=== PATIENT | female | born 1985 | race Caucasian/White ===

== ENCOUNTER 2018-02-10 08:53 | Emergency (ER) | payer OTHER ==
[2018-02-10] MEDS ORDERED: OXYMETAZOLINE NASAL SPRAY NAS STA (09:11)
[2018-02-10] MEDS ORDERED: MECLIZINE 12.5 MG TABLET PO STA (09:11)
[2018-02-10] MEDS ORDERED: ONDANSETRON ODT 4 MG TABLET TL STA (09:11)
--- NOTE | 2018-02-10 09:14 | ED Physician Documentation ---
History of Present Illness - Stated complaint Stated Complaint: Vertigo - Chief complaint Chief Complaint: General - Additonal information Additional information: hx from pt 32 f hx migraines and crohns and seasonal allergies denies preg LMP now and SO has a vas yesterday and today with severe vertigo, diff to walk, spinning also recent nasal and ear congestion c/w allergies has a REED similar to her migraines has been worked up for her migraine including imaging and has meds for same ( but PCSing so meds are not with her right now) Review of Systems Constitutional: denies: Fever, Chills Nose: reports: Congestion GI: reports: Nausea : reports: LMP (now). denies: Now EGA Neurologic: reports: Headache (like migraines), Other (vertigo). denies: Focal weakness, Numbness PD PAST MEDICAL HISTORY - Past Medical History Cardiovascular: Arrhythmia Neuro: Migraines GI: Ulcerative colitis - Past Surgical History Past Surgical History: No General: Colonoscopy, Other - Present Medications Home Medications: Ambulatory Orders Medication Instructions Recorded Confirmed Metoprolol Tartrate 100 mg PO DAILY 04/21/14 10/19/15 Cetirizine [ZyrTEC] 10 mg PO ONCE 02/10/18 02/10/18 Fluticasone [Flonase] 2 sprays DAX DAILY #1 bottle 02/10/18 Meclizine [Antivert] 25 mg PO Q6H PRN #20 tablet 02/10/18 Ondansetron Odt [Zofran] 4 mg TL Q6H PRN #10 tablet 02/10/18 - Allergies Allergies/Adverse Reactions: Allergies Allergy/AdvReac Type Severity Reaction Status Date / Time tramadol HCl * [From Ultra] Allergy Hallucinati Verified 02/10/18 09:00 ons - Social History Does the pt smoke?: No Smoking Status: Never smoker Does the pt drink ETOH?: Yes Does the pt have substance abuse?: No - POLST Patient has POLST: No PD ED PE NORMAL - Vitals Vital signs reviewed: Yes - HEENT HEENT: Atraumatic, EOMI (+ horiz nystagmus with vertigo during EOMI, no palsy, paulina TMs dull and congested) - Neck Neck: Supple, no meningeal sign - Cardiac Cardiac: RRR - Respiratory Respiratory: No respiratory distress - Neuro Neuro: Alert and oriented X 3, pharmaceutical scientist 2-12 intact, No motor deficit, Normal speech Eye Opening: Spontaneous Motor: Obeys Commands Verbal: Oriented GCS Score: 15 Results - Vitals Vitals: Vital Signs - 24 hr 02/10/18 08:57 Temperature 36 C L Heart Rate 71 Respiratory 18 Rate Blood Pressure 121/82 H O2 Saturation 99 Oxygen O2 Source Room air PD MEDICAL DECISION MAKING - ED course ED course: pt better with meds will dc - Sepsis Event Vital Signs: Vital Signs - 24 hr 02/10/18 08:57 Temperature 36 C L Heart Rate 71 Respiratory 18 Rate Blood Pressure 121/82 H O2 Saturation 99 Oxygen O2 Source Room air Departure - Departure Disposition: Home, Self Care Clinical Impression: Vertigo Condition: Good Instructions: ED BPV Vertigo Prescriptions: Fluticasone [Flonase] 2 sprays DAX DAILY #1 bottle Meclizine [Antivert] 25 mg PO Q6H PRN #20 tablet PRN Reason: Dizziness Ondansetron Odt [Zofran] 4 mg TL Q6H PRN #10 tablet PRN Reason: Nausea / Vomiting
[2018-02-10 10:17] VITALS: BP 104/78
== END 2018-02-10 10:19 | disposition home or self-care (01) ==
LOC: ED 08:53
DX: R42 Dizziness and giddiness (principal); R51 Headache; K50.90 Crohn's disease, unspecified, without complications; I49.9 Cardiac arrhythmia, unspecified; Z87.19 Personal history of other diseases of the digestive system
CPT/HCPCS: 99283; A9270; Q0162

== ENCOUNTER 2022-03-02 14:30 | Emergency (ER) | payer OTHER ==
--- NOTE | 2022-03-02 16:27 | ED Physician Documentation ---
PD HPI HEADACHE - Stated complaint Stated Complaint: MIGRAINE - Chief complaint Chief Complaint: Neuro - History obtained from History obtained from: Patient - History of Present Illness Timing - onset: Today, Yesterday Timing - onset during: Light activity Timing - duration: Days (2 days without improvement from Zofran, Ibuprofen, and Imitrex, tried couple of times. States infrequently does the Imitrex help. History of migraines watermaster. Has had neurologist in the past, not currently. Is getting referral from PMD.) Timing - details: Abrupt onset, Still present Worst headache ever?: No: Worst headache ever? (similar to migraines intractable in the past and has had ER visits intermittently for these when intractable over a day.) Location: Front, Right Quality: Throbbing, Aching, Other Associated symptoms: Nausea, Numbness (headache preceded by facial numbness, which is common for her.). No: Fever, Stiff neck, Vomiting, Weakness Improved by: Dark room. No: Meds Worsened by: Light, Noise Contributing factors: No: Anticoagulated, Hypertension, Recent illness, Trauma Similar symptoms before: Diagnosis (long history of migraines as well as chronic daily (most days) headaches. Prior Neurologist several years ago ahd tried few different meds (Topomax sounded familiar to her, as well as several different tryptans). Lamotrigene nor nortryptylline sounded familar but has been years. Getting new referral) Review of Systems Constitutional: denies: Fever, Chills Eyes: reports: Photophobia. denies: Loss of vision, Irritation Nose: denies: Rhinorrhea / runny nose, Congestion Throat: denies: Sore throat Cardiac: reports: Chest pain / pressure. denies: Palpitations Respiratory: denies: Cough GI: reports: Nausea. denies: Abdominal Pain, Vomiting, Diarrhea Skin: denies: Rash, Lesions Neurologic: reports: Headache. denies: Focal weakness, Numbness, Altered mental status, Head injury PD PAST MEDICAL HISTORY - Past Medical History Cardiovascular: Arrhythmia Neuro: Migraines GI: Ulcerative colitis - Past Surgical History Past Surgical History: No General: Colonoscopy, Other - Present Medications Home Medications: Ambulatory Orders Medication Instructions Recorded Confirmed Cetirizine [ZyrTEC] 10 mg PO DAILY 02/10/18 03/02/22 Fluticasone [Flonase] 2 sprays DAX DAILY #1 bottle 02/10/18 03/02/22 Meclizine [Antivert] 25 mg PO Q6H PRN #20 tablet 02/10/18 03/02/22 Ondansetron Odt [Zofran] 4 mg TL Q6H PRN #10 tablet 02/10/18 03/02/22 Indomethacin [Indocin] 25 mg PO BIDWM PRN #10 cap 03/02/22 Ondansetron Odt [Zofran] 4 mg TL Q6H PRN #15 tablet 03/02/22 dexAMETHasone [Decadron] 4 mg PO DAILY #5 tablet 03/02/22 lamoTRIgine [LaMICtal] 25 mg PO QPM #30 tablet 03/02/22 oxyCODONE [Roxicodone] 5 mg PO Q6H PRN #12 tablet 03/02/22 - Allergies Allergies/Adverse Reactions: Allergies Allergy/AdvReac Type Severity Reaction Status Date / Time tramadol HCl * [From Ultram] Allergy Hallucinati Verified 03/02/22 14:39 ons - Social History Does the pt smoke?: No Smoking Status: Never smoker Does the pt drink ETOH?: Yes Does the pt have substance abuse?: No - POLST Patient has POLST: No PD ED PE NORMAL - Vitals Vital signs reviewed: Yes - General General: Alert and oriented X 3, Well developed/nourished, Other (appears uncmofrtable with dark glasses in ER. Light sensitive and noise too. Interacts well and normal conversational ability. ) - HEENT HEENT: PERRL, EOMI - Neck Neck: Supple, no meningeal sign, No adenopathy - Cardiac Cardiac: RRR (mild bradycardia. ), No murmur - Respiratory Respiratory: Clear bilaterally - Derm Derm: Normal color, Warm and dry - Neuro Neuro: Alert and oriented X 3, manager medicare 2-12 intact, No motor deficit, No sensory deficit, Normal speech Eye Opening: Spontaneous Motor: Obeys Commands Verbal: Oriented GCS Score: 15 Results - Vitals Vitals: Vital Signs - 24 hr 03/02/22 03/02/22 14:39 18:20 Temperature 36.7 C 36.5 C Heart Rate 101 H 80 Respiratory 18 16 Rate Blood Pressure 121/84 H 114/65 O2 Saturation 99 97 Oxygen O2 Source Room air PD MEDICAL DECISION MAKING - ED course Complexity details: re-evaluated patient (She is improved with a typical combination of antimigraine medications. She is feeling improved enough to want to go home at this point. She however has only had recently Imitrex and Zofran. Its been several years or more since any prophylactic medications have been tried. We can try daily meds.), considered differential (She has migraine type headache exacerbation yesterday into today unresponsive to home medicines. Symptoms sound consistent with migraine. She also has chronic nearly daily headaches as well.), d/w patient Departure - Departure Disposition: Home, Self Care Clinical Impression: Acute migraine, Chronic daily headache Condition: Stable Record reviewed to determine appropriate education?: Yes Instructions: ED Headache Migraine Follow-Up: BASSEM BRANCH MD [Primary Care Provider] - Prescriptions: dexAMETHasone [Decadron] 4 mg PO DAILY #5 tablet Indomethacin [Indocin] 25 mg PO BIDWM PRN #10 cap PRN Reason: Headache lamoTRIgine [LaMICtal] 25 mg PO QPM #30 tablet oxyCODONE [Roxicodone] 5 mg PO Q6H PRN #12 tablet PRN Reason: Pain Ondansetron Odt [Zofran] 4 mg TL Q6H PRN #15 tablet PRN Reason: Nausea / Vomiting Comments: For the current migraine headache, continue with regular fluids and hydration at home and ondansetron if needed for nausea. Add Tylenol every 4-6 hours if needed for pain and oxycodone if needed for worse pain. Since you have had the migraine persisting for a while, I would also add Decadron steroid daily for 5 more days to try to prevent the recurrence of it in the near term. Subsequently for recurrent migraine type headaches in the near future, you could try a combination of the Zofran/ondansetron nausea medicine along with trying indomethacin twice daily for a day or 2 and see if that is helpful and abbreviated in the migraine. Some types of headaches/migraines are indomethacin responsive and could be helpful info for Neurologist. If you are not noticing much improvement with the initial dose after half an hour to an hour, you could also add the Imitrex that you take. Regarding your chronic frequent headaches, we can also try lamotrigine low-dose daily at night for the next several weeks to a month and see if overall you have lessening of your headaches. Follow-up with your primary care later this month as scheduled and hopefully they will be getting your neurology follow-up/referral in the near future as well. Return to the ER as needed. I transmitted your prescriptions to [facility] pharmacy in [place]. I am prescribing a short course of narcotic pain medication for you. These are potentially dangerous and addictive medications that should be used carefully. These medications may constipate you. Take an [id number]-[id number] stool softener such as docusate twice daily with plenty of water while taking these medications . If you go 24 hours without a bowel movement, take zyog-boy-fqstuil MiraLAX, per package instructions. Do not drink or drive while taking these medications. If you received narcotic or sedating medications while in the emergency department do not drive for 24 hours. Store this medication in a safe, secure place and out of reach of children. It is a violation of federal law to give or sell this medication to another person or to use in a manner other than prescribed. The ED will not refill narcotic prescriptions, including prescriptions lost or stolen. You can dispose of unwanted medications at the [facility] office or at several pharmacies such as [facility] Discharge Date/Time: 03/02/22 18:26
[2022-03-02] MEDS ORDERED: KETOROLAC 15 MG/ML VIAL IVP STA (16:46)
[2022-03-02] MEDS ORDERED: DEXAMETHASONE 10 MG/ML VIAL IVP STA (16:46)
[2022-03-02] MEDS ORDERED: SODIUM CHLORIDE 0.9% 1,000 ML IV STA (16:46)
[2022-03-02] MEDS ORDERED: diphenhydrAMINE INJ 50 MG/ML VIAL IVP STA (16:46)
[2022-03-02] MEDS ORDERED: PROCHLORPERAZINE 10 MG/2 ML VIAL IVP STA (16:46)
[2022-03-02 18:21] VITALS: BP 114/65
== END 2022-03-02 18:26 | disposition home or self-care (01) ==
LOC: ED 14:30
DX: G43.909 Migraine, unspecified, not intractable, without status migrainosus (principal); G89.29 Other chronic pain; G44.89 Other headache syndrome
CPT/HCPCS: 96374; 96375; 99284; 99285; J1200

== ENCOUNTER 2022-07-04 08:53 | Emergency (ER) | payer OTHER ==
--- NOTE | 2022-07-04 09:26 | XRAY Report ---
PROCEDURE: Chest 1 View X-Ray INDICATIONS: Chest pain TECHNIQUE: One view of the chest was acquired. COMPARISON: None. FINDINGS: Surgical changes and devices: None. Lungs and pleura: Right basilar opacity is present. Mediastinum: Mediastinal contours appear normal. Heart size is enlarged. Bones and chest wall: No suspicious bony lesions. Overlying soft tissues appear unremarkable. IMPRESSION: Right basilar opacity suggestive of developing pneumonia. Reviewed by: Frida Metz MD on 07/04/2022 9:24 AM [facility] Approved by: Frida Metz MD on 07/04/2022 9:24 AM [facility] Station ID: [id number]
[2022-07-04 09:38] LABS: BASOPHILS # (AUTO) 0.1 10^3/uL (0.0-0.1); BASOPHILS % (AUTO) 0.8 %; EOSINOPHILS # (AUTO) 0.2 10^3/uL (0.0-0.7); EOSINOPHILS % (AUTO) 1.5 %; HCT - HEMATOCRIT 39.4 % (37.0-47.0); HGB - HEMOGLOBIN 12.8 g/dL (12.0-16.0); LYMPHOCYTES # (AUTO) 1.9 10^3/uL (1.5-3.5); LYMPHOCYTES % (AUTO) 18.6 %; MEAN CORPUSCULAR HEMOGLOBIN 27.7 pg (27.0-31.0); MEAN CORPUSCULAR HGB CONC 32.5 g/dL (32.0-36.0); MEAN CORPUSCULAR VOLUME 85.3 fL (81.0-99.0); MEAN PLATELET VOLUME 9.4 fL (7.9-10.8); MONOCYTES # (AUTO) 0.6 10^3/uL (0.0-1.0); MONOCYTES % (AUTO) 5.9 %; NEUTROPHILS # (AUTO) 7.3 10^3/uL (1.5-6.6); NEUTROPHILS % (AUTO) 73.1 %; PLT - PLATELET COUNT 356 10^3/uL (130-450); RED BLOOD COUNT 4.62 10^6/uL (4.20-5.40); RED CELL DISTRIBUTION WIDTH 13.8 % (12.0-15.0)
[2022-07-04 09:59] LABS: ALBUMIN 3.9 g/dL (3.2-5.5); BILIRUBIN,TOTAL 0.5 mg/dL (0.2-1.0); CALCIUM 9.5 mg/dL (8.5-10.3); CREATININE 0.9 mg/dL (0.4-1.0); POTASSIUM 4.4 mmol/L (3.5-5.0); TOTAL PROTEIN 7.9 g/dL (6.7-8.2)
[2022-07-04] MEDS ORDERED: iohexoL-300 100 ML VIAL ONE ×2 (11:32→12:40)
--- NOTE | 2022-07-04 12:34 | CT Report ---
PROCEDURE: ABDOMEN/PELVIS W INDICATIONS: Rule out pe CONTRAST: 100ml Omnipaque 300 TECHNIQUE: After the administration of intravenous contrast, 5 mm thick sections acquired from the diaphragms to the symphysis. 5 mm thick coronal and sagittal reformats were acquired. For radiation dose reducti on, the following was used: automated exposure control, adjustment of mA and/or kV according to wally ent size. COMPARISON: None. FINDINGS: Image quality: Excellent. ABDOMEN: Lung bases: Lung bases are clear. Heart size is normal. Solid organs: There is a small less than 1 cm indeterminate lesion within the right lobe of the liver posteriorly. If further evaluation is clinically indicated that a right upper quadrant ultrasound ma y be of further clinical value to evaluate cystic versus solid. The spleen appears within normal limi ts. Gallbladder is normal. Biliary system is non dilated. Pancreas enhances normally. No adrenal n odules. Kidneys demonstrate normal size and enhancement, without hydronephrosis. Peritoneum and bowel: Bowel loops demonstrate normal wall thickness and caliber. No free fluid or a ir. The appendix is visualized and appears normal. Nodes and vessels: No retroperitoneal or mesenteric adenopathy by size criteria. Aorta and inferior vena cava are normal in size. Miscellaneous: No ventral hernias. There is some mild scarring versus atelectasis at the lung bases. PELVIS: Genitourinary: Bladder wall thickness is normal. Miscellaneous: No inguinal hernias or adenopathy. Bones: No suspicious bony lesions. No vertebral body compression fractures. IMPRESSION: 1. No acute process identified in the abdomen or pelvis. 2. Normal-appearing appendix. 3. Small less than 1 cm low-attenuation lesion in the right lobe of the patient's liver posteriorly. If further evaluation is clinically indicated a right upper quadrant ultrasound may be of further cli nical value to evaluate cystic versus solid. Reviewed by: Armin Chauhan MD on 07/04/2022 12:33 PM PST Approved by: Armin Chauhan MD on 07/04/2022 12:33 PM PST Station ID: [id number]
[2022-07-04] MEDS ORDERED: ONDANSETRON 4 MG/2 ML VIAL IVP STA (12:51)
[2022-07-04] MEDS ORDERED: fentaNYL 100 MCG/2 ML VIAL IVP STA ×2 (12:53→14:44)
--- NOTE | 2022-07-04 13:39 | CT Report ---
PROCEDURE: ANGIO CHEST W/WO INDICATIONS: Rule out PE CONTRAST: 100ml Omnipaque 300 TECHNIQUE: After the administration of intravenous contrast, 2 mm axial images were acquired from the pulmonary apices to the posterior costophrenic angles during the arterial phase. In addition, 1 mm lung kernel and 5 mm soft tissue kernel reconstructions were performed. 3-dimensional coronal oblique maximum int ensity projection (MIP) reformats, 8 mm axial MIP, and 5 mm coronal and sagittal MPR reformats were t hen performed through the thorax. For radiation dose reduction, the following was used: automated exp osure control, adjustment of mA and/or kV according to patient size. COMPARISON: None FINDINGS: Image quality: Degraded by motion artifact. Pulmonary arteries: Pulmonary arteries are normal in size. There is articular filling defects seen w ithin the right lower lobe, and right upper lobe segmental and subsegmental pulmonary arterial branch es. Lungs and pleura: There is mild patchy opacity within the right upper lobe posteriorly spanning rough ly 30 mm. No pleural effusions or pneumothorax. Central and peripheral airways are patent. Mediastinum: Heart size is normal, without pericardial effusion. No mediastinal or hilar adenopathy . Thoracic aorta is normal in caliber and enhancement. Esophagus is normal in caliber. Small hiatal hernia. Bones and chest wall: No suspicious bony lesions. Ribs and thoracic spine appear intact throughout. No axillary or supraclavicular adenopathy. The thyroid is normal in size and there are no incident al findings. Abdomen: Visualized upper abdominal solid organs appear normal in the early arterial phase of enhanc ement. IMPRESSION: 1. Right-sided pulmonary emboli. 2. Findings suggestive of an early small pulmonary infarction within the right upper lobe. 3. Small hiatal hernia. 4. Findings discussed with Dr. Savage on 07/04/2022 at 1335 hours. Reviewed by: Daniella Garcia MD on 07/04/2022 1:38 PM PST Approved by: Daniella Garcia MD on 07/04/2022 1:38 PM PST Station ID: [id number]
--- NOTE | 2022-07-04 14:28 | Ultrasound Report ---
PROCEDURE: Abdomen Limited INDICATIONS: RUQ abd pain TECHNIQUE: Real-time focused scanning was performed of the abdomen, with image documentation. COMPARISON: 07/04/2022 CT FINDINGS: There is a hyperechoic focus within the right hepatic lobe posteriorly measuring 15 mm kleber meter. Gallbladder is within normal limits. No biliary ductal dilatation. Pancreas is not well seen b ut is grossly unremarkable. Right kidney is grossly unremarkable. IMPRESSION: 1. No acute process. 2. Indeterminate right posterior hepatic lobe lesion, corresponding to a low-density focus by CT. Non emergent outpatient follow-up liver protocol MRI is recommended for further assessment. Reviewed by: Daniella Garcia MD on 07/04/2022 2:26 PM PST Approved by: Daniella Garcia MD on 07/04/2022 2:26 PM PST Station ID: [id number]
--- NOTE | 2022-07-04 14:37 | ED Physician Documentation ---
History of Present Illness - Stated complaint Stated Complaint: CHEST PX - Chief complaint Chief Complaint: Cardiac - Additonal information Additional information: 37-year-old female presenting to the emergency department with right upper cynthia drant abdominal pain as well as right-sided chest pain. Pain began acutely this afternoon. Denies similar episodes of pain in the past. Reports recently initiated an estrogen containing control medication. Denies for any history of hypertension, dyslipidemia, recent travel. Review of Systems Ten Systems: 10 systems reviewed and negative Constitutional: denies: Fever Eyes: denies: Loss of vision Ears: denies: Loss of hearing Nose: denies: Rhinorrhea / runny nose Throat: denies: Dental pain / toothache Cardiac: reports: Chest pain / pressure Respiratory: denies: Dyspnea GI: denies: Abdominal Pain, Nausea, Vomiting : denies: Dysuria PD PAST MEDICAL HISTORY - Past Medical History Past Medical History: Yes Cardiovascular: Arrhythmia Neuro: Migraines GI: Ulcerative colitis - Past Surgical History Past Surgical History: No General: Colonoscopy, Other - Present Medications Home Medications: Ambulatory Orders Medication Instructions Recorded Confirmed Cetirizine [ZyrTEC] 10 mg PO DAILY 18 03/02/22 Fluticasone [Flonase] 2 sprays DAX DAILY #1 bottle 02/10/18 03/02/22 Meclizine [Antivert] 25 mg PO Q6H PRN #20 tablet 02/10/18 03/02/22 Ondansetron Odt [Zofran] 4 mg TL Q6H PRN #10 tablet 02/10/18 03/02/22 Indomethacin [Indocin] 25 mg PO BIDWM PRN #10 cap 03/02/22 Ondansetron Odt [Zofran] 4 mg TL Q6H PRN #15 tablet 03/02/22 dexAMETHasone [Decadron] 4 mg PO DAILY #5 tablet 03/02/22 lamoTRIgine [LaMICtal] 25 mg PO QPM #30 tablet 03/02/22 oxyCODONE [Roxicodone] 5 mg PO Q6H PRN #12 tablet 03/02/22 Apixaban [Eliquis] 5 mg PO BID #90 tablet 07/04/22 HYDROcod/ACETAM 5/325 [[place] 5/325] 1 tab PO Q6HR PRN #15 tablet 07/04/22 ONDANSETRON ODT Prepack 2 [ZOFRAN 4 mg TL Q6H #20 tablet 07/04/22 ODT Prepack 2] - Allergies Allergies/Adverse Reactions: Allergies Allergy/AdvReac Type Severity Reaction Status Date / Time tramadol HCl * [From Ultram] Allergy Hallucinati Verified 07/04/22 09:08 ons - Social History Does the pt smoke?: No Smoking Status: Never smoker Does the pt drink ETOH?: Yes Does the pt have substance abuse?: No - Immunizations Immunizations are current?: Yes - POLST Patient has POLST: No PD ED PE NORMAL - Vitals Vital signs reviewed: Yes - General General: Alert and oriented X 3, No acute distress, Well developed/nourished - HEENT HEENT: Atraumatic, PERRL, EOMI, Ears normal - Neck Neck: Supple, no meningeal sign, No bony TTP, No adenopathy - Cardiac Cardiac: RRR, No gallop, Strong equal pulses - Respiratory Respiratory: No respiratory distress, Clear bilaterally - Abdomen Abdomen: Normal bowel sounds, Non tender - Female Female : Deferred - Rectal Rectal: Deferred - Back Back: No CVA TTP - Derm Derm: Normal color - Extremities Extremities: No deformity - Neuro Neuro: Alert and oriented X 3, hardware test engineer 2-12 intact, No motor deficit, No sensory deficit, Normal speech Results - Vitals Vitals: Vital Signs - 24 hr 07/04/22 07/04/22 07/04/22 09:04 10:16 11:45 Temperature 36.2 C L Heart Rate 126 H 104 H 96 Respiratory 16 20 20 Rate Blood Pressure 143/99 H O2 Saturation 97 96 97 07/04/22 07/04/22 13:39 14:36 Temperature Heart Rate 90 88 Respiratory 16 19 Rate Blood Pressure 116/83 H O2 Saturation 100 96 Oxygen O2 Source Room air - EKG (time done) 0901 Rate: Rate (enter#) (122) Rhythm: NSR [place]: Normal Intervals: Normal CA QRS: Normal Ischemia: Non specific changes - Labs Labs: Laboratory Tests 07/04/22 07/04/22 07/04/22 09:32 09:32 09:32 WBC 10.0 RBC 4.62 Hgb 12.8 Hct 39.4 MCV 85.3 MCH 27.7 MCHC 32.5 RDW 13.8 Plt Count 356 MPV 9.4 Neut # (Auto) 7.3 H Lymph # (Auto) 1.9 Sharkey # (Auto) 0.6 Eos # (Auto) 0.2 Baso # (Auto) 0.1 Absolute Nucleated RBC 0.00 Nucleated RBC % 0.0 D-Dimer Sodium 137 Potassium 4.4 Chloride 102 Carbon Dioxide 25 Anion Gap 10.0 BUN 13 Creatinine 0.9 Estimated GFR (MDRD) 70 L Glucose 88 Calcium 9.5 Total Bilirubin 0.5 AST 15 ALT 20 Alkaline Phosphatase 68 Troponin I High Sens 2.6 Total Protein 7.9 Albumin 3.9 Globulin 4.0 Albumin/Globulin Ratio 1.0 Lipase 38 07/04/22 07/04/22 10:33 11:21 WBC RBC Hgb Hct MCV MCH MCHC RDW Plt Count MPV Neut # (Auto) Lymph # (Auto) Sharkey # (Auto) Eos # (Auto) Baso # (Auto) Absolute Nucleated RBC Nucleated RBC % D-Dimer 473.4 H Sodium Potassium Chloride Carbon Dioxide Anion Gap BUN Creatinine Estimated GFR (MDRD) Glucose Calcium Total Bilirubin AST ALT Alkaline Phosphatase Troponin I High Sens < 2.3 L Total Protein Albumin Globulin Albumin/Globulin Ratio Lipase PD MEDICAL DECISION MAKING - ED course Complexity details: reviewed results, re-evaluated patient, d/w patient ED course: Patient 37-year-old female presenting to the emergency department with right- sided chest and right-sided abdominal pain. Afebrile, hemodynamically stable. Patient arrived with low level tachycardia which resolved shortly after arrival. EKG with S1Q3T3 pattern as well as nonspecific ST wave abnormalities. Troponin negative. D-dimer mildly elevated. Did have some concern for biliary pathology. Labs obtained did not show any indications of biliary obstruction and right upper quadrant ultrasonography negative. CTA of the chest howeverDemonstrated right-sided pulmonary emboli. Patient's pulmonary emboli severity score is quite low. She was given med ication for pain control. Discussed pros and cons of starting oral anticoagulation. She was extensively counseled on the use of these medications as well as the dangers. Will discharge with course apixaban. Additionally incidentally she was noted to have a lesion to her liver. Recommendation Radiology was outpatient MRI. This was communicated directly with her. Otherwise clear return precautions and follow-up instructions given prior to discharge.. Departure - Departure Disposition: 01 Home, Self Care Clinical Impression: Pulmonary emboli, Liver lesion Instructions: Embolism Pulmonary Dc Prescriptions: HYDROcod/ACETAM 5/325 [[place] 5/325] 1 tab PO Q6HR PRN #15 tablet PRN Reason: Pain Apixaban [Eliquis] 5 mg PO BID #90 tablet ONDANSETRON ODT Prepack 2 [ZOFRAN ODT Prepack 2] 4 mg TL Q6H #20 tablet Comments: Thank you for allowing us to care for you today at [facility]. Today in the emergency department you are diagnosed with right-sided pulmonary emboli. As we discussed I like you to begin a course of oral anticoagulation. I have sent a prescription for Eliquis, also known as apixaban to your preferred pharmacy. Would like you to take 10 mg twice daily for the next 7 days. Thereafter please continue to take 5 mg twice daily until cleared by your primary care doctor. Will these medications are generally considered safe there is increased risk for bleeding while taking them. If you develop any signs or symptoms concerning for GI bleeding such as blood per rectum or dark, tarry, foul or malodorous stool or if he has any head trauma or excessive bleeding from any injuries importantly return to the emergency department for evaluation. As an incidental finding you were noted to have a nonspecific mass associated with your liver. I would like you to discuss this with your primary care doctor for possible follow-up imaging. Again if it anytime you develop any new or worsening symptoms please not hesitate to return to the emergency department. Discharge Date/Time: 07/04/22 15:30
[2022-07-04 14:38] VITALS: BP 116/83
[2022-07-04] MEDS ORDERED: APIXABAN 5 MG TABLET PO STA (14:40)
[2022-07-04] MEDS ORDERED: HYDROcod/ACETAM 5/325 MG TABLET PO STA (15:17)
[2022-07-04] MEDS ORDERED: iohexoL-300 100 ML VIAL IVP ONE (16:37)
== END 2022-07-04 15:30 | disposition home or self-care (01) ==
LOC: ED 08:53
DX: I26.99 Other pulmonary embolism without acute cor pulmonale (principal); K76.9 Liver disease, unspecified
CPT/HCPCS: 36415; 71045; 71275; 74177; 76705; 80053; 83690; 84484; 85025; 85379; 93005; 96374; 96376; 99283; 99284; A9270; Q9967